=== PATIENT | female | born 1965 | race Caucasian/White ===

== ENCOUNTER 2022-04-28 15:55 | Emergency (ER) | payer MEDICAID ==
[~2022-04-28] VITALS: Ht 175.3 cm; Wt 99.3 kg
[2022-04-28 16:01] VITALS: BP 132/76
--- NOTE | 2022-04-28 16:18 | NUR ---
JOCELYNN No at bedside for evaluation
[2022-04-28] MEDS ORDERED: KETOROLAC 30 MG/ML VIAL IM ONE (16:20)
--- NOTE | 2022-04-28 16:20 | NUR ---
57 y/o female with pain s/p fall yesterday. [place] falling on left side hitting ribs, denies head trauma, or loc. Denies numbness, tingling, cp, sob. Rates pain 6/10 sharp constant pain worsened by cough or when prompting deep breath. Did not try any medication for pain. pmh: htn nka
--- NOTE | 2022-04-28 16:28 | NUR ---
Pt refused Toradol, ERMD made aware
[2022-04-28] MEDS ORDERED: ACETAMINOPHEN EXTRA STRENGTH 500 MG TAB PO ONE (16:40)
--- NOTE | 2022-04-28 16:43 | NUR ---
Taken to XRay via w/c
--- NOTE | 2022-04-28 16:58 | NUR ---
Returned from Xray via w/c
[2022-04-28] MEDS ORDERED: IBUP-2213 PO (17:40)
[2022-04-28 18:00] VITALS: BP 132/76
== END 2022-04-28 18:01 | disposition home or self-care (01) ==
LOC: MED 15:55
DX: S22.32XA Fracture of one rib, left side, initial encounter for closed fracture (principal); E11.9 Type 2 diabetes mellitus without complications; I10 Essential (primary) hypertension; Z79.899 Other long term (current) drug therapy; W01.0XXA Fall on same level from slipping, tripping and stumbling without subsequent striking against object, initial encounter; Y93.01 Activity, walking, marching and hiking; Y92.832 Beach as the place of occurrence of the external cause; Y99.8 Other external cause status
CPT/HCPCS: 71101; 99283; J1885